=== PATIENT | female | born 1995 | race Caucasian/White ===

== ENCOUNTER → 2020-01-31 | Outpatient (CLI) | payer BC ==
[2020-01-31 12:51] LABS: BACTERIA (WET MOUNT) 3+ BACTERIA SEEN; EPITHELIALS (WET MOUNT) 3+ EPITHELIALS SEEN; RBCS (WET MOUNT) FEW RBCS SEEN; T.VAGINALIS (WET MOUNT) NO TRICHOMONAS SEEN; WBCS (WET MOUNT) 1+ WBCS SEEN; YEAST (WET MOUNT) NO YEAST SEEN
[2020-01-31 14:22] LABS: CHLAM PCR NOT DETECTED (NOT DETECT)
== END ==
LOC: LAB 12:45
PROVIDERS: ATTEND Nurse Practitioner Acute Care
DX: N89.8 Other specified noninflammatory disorders of vagina (principal); R30.0 Dysuria
CPT/HCPCS: 87086; 87210; 87491; 87591

== ENCOUNTER 2020-02-27 20:13 | Emergency (ER) | payer BC ==
--- NOTE | 2020-02-27 20:49 | ER Document Report ---
ED Medical Screen (RME) - General Chief Complaint: Laceration Stated Complaint: FINGER LACERATION Time Seen by Provider: 02/27/20 20:43 Mode of Arrival: Ambulatory Information source: Patient Notes: Otherwise healthy 24-year-old female presenting to the emergency department with laceration to the left fifth digit. There is an approximate 1 cm laceration that goes through the nail. She reports this happened just prior to arrival while cutting vegetables with a kitchen knife. She reports her tetanus is up-to-date. She does have normal motor and sensation, cap refill less than 3 seconds, no active bleeding noted at this time. I have greeted and performed a rapid initial assessment of this patient. A comprehensive ED assessment and evaluation of the patient, analysis of test results and completion of the medical decision making process will be conducted by additional ED providers. I have specifically instructed the patient or family members with the patient to immediately return to any nursing staff should anything change in the patient's condition or with their chief complaint. Physical Exam - Vital signs Vitals: Temp Pulse Resp BP Pulse Ox 98.0 F 93 20 143/113 H 99 02/27/20 20:19 02/27/20 20:19 02/27/20 20:19 02/27/20 20:19 02/27/20 20:19 Course - Vital Signs Vital signs: Temp Pulse Resp BP Pulse Ox 98.0 F 93 20 143/113 H 99 02/27/20 20:19 02/27/20 20:19 02/27/20 20:19 02/27/20 20:19 02/27/20 20:19
[2020-02-27] MEDS ORDERED: BUPIVACAINE HCL 0.5 % INJ/PF 30 ML SDV INJ ONE (21:17)
[2020-02-27] MEDS ORDERED: LIDOCAINE 1% INJ-PF (10 MG/ML) 30 ML SDV INJ ONE (21:17)
[2020-02-27] MEDS ORDERED: LORAZEPAM 1 MG TABLET PO ONE (21:18)
--- NOTE | 2020-02-27 21:31 | ER Document Report ---
ED Wound - General Chief Complaint: Laceration Stated Complaint: FINGER LACERATION Time Seen by Provider: 02/27/20 20:43 Mode of Arrival: Ambulatory Notes: Patient is a 24-year-old female that comes emergency department for chief complaint of laceration to the left fifth digit. She states she was cutting brussel sprouts with a knife when she accidentally cut herself. She states she cut through the nail and through the side of the finger. She is reportedly up-to-date on her tetanus within 5 years. She denies any other injuries or any other complaints. - Related Data Allergies/Adverse Reactions: No Known Allergies Allergy (Unverified 02/27/20 21:31) Past Medical History - General Information source: Patient - Social History Smoking Status: Never Smoker Frequency of alcohol use: None Drug Abuse: None Lives with: Family Family History: Reviewed & Not Pertinent Patient has homicidal ideation: No - Medical History Medical History: Negative Surgical Hx: Negative - Immunizations Immunizations up to date: Yes Hx Diphtheria, Pertussis, Tetanus Vaccination: Yes Review of Systems - Review of Systems Constitutional: No symptoms reported EENT: No symptoms reported Cardiovascular: No symptoms reported Respiratory: No symptoms reported Gastrointestinal: No symptoms reported Genitourinary: No symptoms reported Female Genitourinary: No symptoms reported Musculoskeletal: See HPI Skin: See HPI Hematologic/Lymphatic: No symptoms reported Neurological/Psychological: No symptoms reported Physical Exam - Vital signs Vitals: Temp Pulse Resp BP Pulse Ox 98.0 F 93 20 143/113 H 99 02/27/20 20:19 02/27/20 20:19 02/27/20 20:19 02/27/20 20:19 02/27/20 20:19 - Notes Notes: GENERAL: Alert, interacts well. Anxious but well-appearing HEAD: Normocephalic, atraumatic. EYES: Pupils equal, round, and reactive to light. Extraocular movements intact. ENT: Oral mucosa moist, tongue midline. Oropharynx unremarkable. Airway patent. LUNGS: Clear to auscultation bilaterally, no wheezes, rales, or rhonchi. No respiratory distress. Non-tender chest wall. HEART: Regular rate and rhythm. No murmur ABDOMEN: Soft, non-tender. Non-distended. Bowel sounds present in all 4 quadrants. GENITOURINARY: Deferred EXTREMITIES: There is a 1 cm laceration that goes through the lateral aspect of the left fifth digit at the mid fingernail down to and including the nailbed. The laceration extends over to the side of the finger in a superficial fashion. Normal cap refill and sensation, normal range of motion of the finger, normal strength against resistance in flexion and extension. Otherwise unremarkable. BACK: no cervical, thoracic, lumbar midline tenderness. No saddle anesthesia, normal distal neurovascular exam. Moves all extremities in full range of motion. NEUROLOGICAL: Alert and oriented x3. Normal speech. Cranial nerves II through XII grossly intact. Strength 5/5 in all extremities. PSYCH: Anxious, shaky SKIN: Warm, dry, normal turgor. No rashes or lesions noted. Course - Re-evaluation Re-evalutation: Patient very anxious, jittery, slightly diaphoretic over the concept of sutures, I did give her Ativan for this after discussion, her symptoms did resolve. X- ray is negative for acute findings including fracture or foreign body. Wound was cleaned very thoroughly, repaired with suture through the finger and then suture through the nail with satisfactory results. Discussed care, follow-up, and return cautions in detail. Patient states understanding and agreement. - Vital Signs Vital signs: Temp Pulse Resp BP Pulse Ox 98.7 F 81 16 135/89 H 99 02/27/20 22:53 02/27/20 22:53 02/27/20 22:53 02/27/20 22:53 02/27/20 22:53 Procedures - Laceration/Wound Repair Left fifth digit Wound length (cm): 1 Wound's Depth, Shape: Irregular - Through the nail/top of the nailbed, into the side of the finger Laceration pre-procedure: Sterile PPE donned, Sterile drapes applied, Shur-Clens applied Anesthetic type: Other - 4 total mL's of combined 0.5% bupivacaine and 1% lidocaine placed in a digital block with good results Wound explored: Clean, No foreign body removed Wound Repaired With: Sutures Suture Size/Type: 5:0, Nylon Number of Sutures: 2 Layer Closure?: No Post-procedure wound care: Sterile dressing applied Post-procedure NV exam normal: Yes Complications: No Discharge - Discharge Clinical Impression: Laceration of finger with damage to nail Qualifiers: Encounter type: initial encounter Finger: little finger Foreign body presence: without foreign body Laterality: left Qualified Code(s): S61.317A - Laceration without foreign body of left little finger with damage to nail, initial encounter Condition: Stable Disposition: HOME, SELF-CARE Additional Instructions: The finger and nail were repaired with sutures tonight. The x-ray is normal. Keep the current Xeroform (yellow) dressing on for 2 days, afterwards remove, clean gently with soap and water, dab dry, apply topical antibiotic and a nonadhesive dressing. Avoid soaking or scrubbing but keep the area clean and change at least daily after this. Follow-up with primary care. Sutures can be removed in 7 days at a medical facility. You can take Tylenol and ibuprofen for pain. Return for any signs of infection including developing severe pain, redness, swelling, discharge, fever, or any other concerning or worsening symptoms. Forms: Return to Work
--- NOTE | 2020-02-27 22:00 | RADIOLOGY REPORT (SQ) ---
CLINICAL INDICATION: finger laceration; bone involvement?. . TECHNIQUE: 3 view(s) obtained of the left fifth. COMPARISON: None. FINDINGS: No acute displaced fracture is identified. Alignment appears anatomic. Joint spaces are within normal limits for age. Soft tissue injury to the tip of the digit. Mild artifact from overlying bandage material. No discrete radiopaque foreign body. IMPRESSION: No acute displaced fracture is identified.
[2020-02-27 22:55] VITALS: BP 135/89
== END 2020-02-27 22:53 | disposition home or self-care (01) ==
LOC: ER 20:13
DX: S61.317A Laceration without foreign body of left little finger with damage to nail, initial encounter (principal); W26.0XXA Contact with knife, initial encounter; Y93.G9 Activity, other involving cooking and grilling; R61 Generalized hyperhidrosis
CPT/HCPCS: 99283; 73140; 12001; J3490 ×2

== ENCOUNTER → 2020-04-04 | Outpatient (CLI) | payer BC ==
[2020-04-04 14:38] LABS: BACTERIA (WET MOUNT) 4+ BACTERIA SEEN; EPITHELIALS (WET MOUNT) 4+ EPITHELIALS SEEN; RBCS (WET MOUNT) RARE RBCS SEEN; T.VAGINALIS (WET MOUNT) NO TRICHOMONAS SEEN; WBCS (WET MOUNT) 3+ WBCS SEEN; YEAST (WET MOUNT) NO YEAST SEEN
[2020-04-04 16:09] LABS: CHLAM PCR NOT DETECTED (NOT DETECT)
== END ==
LOC: LAB 14:35
PROVIDERS: ATTEND Nurse Practitioner Acute Care
DX: N89.8 Other specified noninflammatory disorders of vagina (principal)
CPT/HCPCS: 87210; 87491; 87591